=== PATIENT | female | born 1940 | race Caucasian/White ===

== ENCOUNTER → 2021-06-26 09:39 | Outpatient (CLI) | payer MEDICARE, OTHER, SELFPAY ==
[2021-06-26] MEDS: Lidocaine 2% (5ml sdv) 5 ML VIAL.MPF INFILT (10:00)
[2021-06-26] MEDS: Betamethasone/Betamethasone 30 MG/5 ML Vial 12 MG INTRAARTIC (10:00)
[2021-06-26] MEDS: Lidocaine 1% (5 ml sdv) 5 ML Vial 4 ML INFILT (10:00)
--- NOTE | 2021-06-26 10:00 | RAD_ITS ---
PROCEDURE: Fluoroscopic guided left shoulder injection. DATE: 06/26/2021. INDICATION: Female, 80 years old. Chronic left shoulder pain. PHYSICIAN: Manfred Mejía M.D. MEDICATIONS: 12 mg of BETAMETHASONE and 4 cc 1% LIDOCAINE. 2% lidocaine administered subcutaneously for local anesthesia. ACCESS SITE: Left shoulder. NEEDLE: 22-gauge spinal needle. FLUOROSCOPY TIME (if supplied): (1:07) minutes/seconds. One image was obtained. FINDINGS: The risks, benefits, and alternatives to the procedure were explained to the patient. The specific risks of bleeding, infection, and neurovascular injury were detailed and accepted. Witnessed informed consent was obtained. A 22-gauge spinal needle was positioned under radiographic fluoroscopic localization. Approximately 2 cc of ISOVUE-300 instilled for localization purposes. Medication was then injected. The patient tolerated the procedure well without any immediate complications. RAD/Inj/Asp Shiva Jt Should/Hip/Knee IMPRESSION: 1. Successful fluoroscopic guided left shoulder injection. Electronically Signed: Manfred Mejía MD at 11:27 EDT , Service support ,
== END ==
PROVIDERS: Referring Provider Specialist; Visit Provider Specialist
DX: M19.012 Primary osteoarthritis, left shoulder (principal)
CPT/HCPCS: 20610; 77002; Q9967; J0702

== ENCOUNTER → 2022-03-18 | Outpatient (CLI) | payer MEDICARE, SELFPAY ==
--- NOTE | 2022-03-18 10:17 | RAD_ITS ---
PROCEDURE: Fluoroscopic guided left shoulder injection. DATE: 03/18/2022. INDICATION: Female, 81 years old. Chronic left shoulder pain. PHYSICIAN: Manfred Mejía M.D. MEDICATIONS: 5 mg of the abdomen. End 4 cc of 1% LIDOCAINE. 2% LIDOCAINE administered subcutaneously for local anesthesia ACCESS SITE: Left shoulder NEEDLE: 22-gauge spinal needle. FLUOROSCOPY TIME (if supplied): (0:55) minutes/seconds. One image was obtained. FINDINGS: The risks, benefits, and alternatives to the procedure were explained to the patient. The specific risks of bleeding, infection, and neurovascular injury were detailed and accepted. Witnessed informed consent was obtained. A 22-gauge spinal needle was positioned under radiographic fluoroscopic localization. Approximately 2 cc of ISOVUE-300 instilled for localization purposes. Medication was then injected. The patient tolerated the procedure well without any immediate complications. RAD/Inj/Asp Shiva Jt Should/Hip/Knee IMPRESSION: 1. Successful fluoroscopic guided left shoulder injection. Electronically Signed: Manfred Mejía MD at 12:12 EDT ,
--- NOTE | 2022-03-18 10:19 | RAD_ITS ---
STUDY: THORACIC SPINE X-RAY SERIES OF 1102 HOURS ON 03/18/2022 REASON FOR EXAM: 81-year-old female with spondylolisthesis. TECHNIQUE: 3 view(s) of the thoracic spine were obtained. COMPARISON: None. FINDINGS: Mild demineralization. Mild upper thoracic dextroscoliosis. Moderate thoracic kyphosis. Old mild compression fractures of the T4-6 vertebra. No subluxations or intervertebral disc space narrowing. Intact pedicles and processes. RAD/Thoracic Spine 3 Views IMPRESSION: 1. Mild upper thoracic dextroscoliosis and moderate thoracic kyphosis. 2. Old mild compression fractures of the T4-6 vertebra. 3. No subluxations or intervertebral disc space narrowing. No spondylolisthesis. 4. Intact pedicles and processes. 5. Mild demineralization. Electronically Signed: Myke James MD at 17:15 EDT ,
[2022-03-18] MEDS: Lidocaine 2% (5ml sdv) 5 ML VIAL.MPF INFILT (10:52)
[2022-03-18] MEDS: Lidocaine 1% (5 ml sdv) 5 ML Vial 4 ML OPERA.SITE (10:53)
[2022-03-18] MEDS: Betamethasone/Betamethasone 30 MG/5 ML Vial 12 MG INTRAARTIC (10:53)
== END | disposition home or self-care (01) ==
PROVIDERS: PCP Nurse Practitioner Adult Health; Referring Provider Specialist; Visit Provider Specialist
DX: M25.512 Pain in left shoulder (principal); G89.29 Other chronic pain; M19.012 Primary osteoarthritis, left shoulder; M51.34 Other intervertebral disc degeneration, thoracic region; M47.814 Spondylosis without myelopathy or radiculopathy, thoracic region
CPT/HCPCS: 20610; 72072; 77002; Q9967; J0702